=== PATIENT | female | born 1960 | race Caucasian/White ===

== ENCOUNTER → 2017-03-15 | Outpatient (CLI) | payer OTHER ==
--- NOTE | 2017-03-15 11:45 | Diagnostic Imaging Report ---
EXAMINATION: Four views of the cervical spine. INDICATION: Chronic burning between the shoulder blades. FINDINGS: There is straightening of the cervical spine lordotic curvature. The alignment of the posterior spinal line is satisfactory. There are prominent anterior osteophytes in the mid cervical spine. No posterior osteophytes are noted. The lateral masses of C1 and C2 demonstrate normal alignment. IMPRESSION: Anterior osteophytes in the mid cervical spine are seen. There is straightening of the lordotic curvature which could be due to muscle spasm. Dictated by: Dictated on workstation # [id number]
--- NOTE | 2017-03-15 12:14 | Diagnostic Imaging Report ---
EXAMINATION: Two views of the lumbar spine. INDICATION: Back pain. FINDINGS: The alignment of the posterior spinal line is satisfactory. The vertebral body heights are preserved. There is mild to moderate disc height loss at L5-S1. Multilevel anterior osteophytes are seen with no significant posterior osteophyte. Minimal degenerative sclerotic changes in the facet joints of the lower lumbar spine are seen. Also, mild degenerative changes in the SI joints are noted. Nonspecific calcification on the left side of the pelvis could be a phlebolith. IMPRESSION: Disc degenerative changes in the lower lumbar spine. Dictated by: Dictated on workstation # [id number]
== END ==
LOC: RAD 10:00
PROVIDERS: ATTEND Surgery
DX: M51.36 Other intervertebral disc degeneration, lumbar region (principal); M25.78 Osteophyte, vertebrae
CPT/HCPCS: 72040; 72100

== ENCOUNTER → 2019-04-10 | Outpatient (CLI) | payer OTHER ==
[~2019-04-10] MED LIST: RT-ALBUTEROL SULF 2.5 MG/3 ML PRE-MIX VIAL INH ONE
--- NOTE | 2019-04-10 14:09 | Diagnostic Imaging Report ---
INDICATION: COPD. TIME OF EXAM: 12:46 p.m. COMPARISON: No prior studies are available for comparison. FINDINGS: The heart size is normal. The lungs are clear. No infiltrates are seen. No effusion or pneumothorax is identified. IMPRESSION: No acute abnormality is detected. Dictated by: Dictated on workstation # [id number]
== END ==
LOC: RT 12:31
PROVIDERS: ATTEND Radiology Therapeutic Radiology
DX: Z02.71 Encounter for disability determination (principal); J44.9 Chronic obstructive pulmonary disease, unspecified
CPT/HCPCS: 71046; 94060

== ENCOUNTER → 2020-02-12 | Outpatient (CLI) | payer SELFPAY | LOC: RAD 08:52 | PROVIDERS: ATTEND Internal Medicine | DX: M54.12 Radiculopathy, cervical region (principal); Z53.8 Procedure and treatment not carried out for other reasons ==

== ENCOUNTER → 2020-12-02 | Outpatient (CLI) | payer MEDICAID, OTHER ==
[~2020-12-02] MED LIST changes: +CATHETER FLUSH 10 ML SYR IV PRN; +HOLD METFORMIN - RECEIVED CONTRAST 20 ML VIAL IV SCH; +IOHEXOL 350 MG/ML 100 ML (OMNIPAQUE 350) VIAL IV ONE; +NS 100 ML (IVPB) BAG IV ONE; -RT-ALBUTEROL SULF 2.5 MG/3 ML PRE-MIX VIAL INH ONE
--- NOTE | 2020-12-02 17:35 | Diagnostic Imaging Report ---
PROCEDURE: CT chest with contrast only. TECHNIQUE: Multiple contiguous axial images were obtained through the chest after administration of intravenous contrast. Auto Exposure Controls were utilized during the CT exam to meet ALARA standards for radiation dose reduction. INDICATION: Lung mass. COMPARISON: No relevant comparison. FINDINGS: There is an irregular soft tissue mass in the patient's left lower lobe measuring 4.1 x 3.1 cm. Its ventral aspect abuts the fissure. No pathologically enlarged or suspicious-appearing thoracic lymph nodes. No other lung mass. No effusion or pneumothorax. Right 4th, 5th, 6th and 7th rib fractures anterolaterally of uncertain acuity. They are incompletely healed but there is at least some new bone formation. These may be recent. Correlate with any recent injury. The left-sided ribs unremarkable. The spine degenerated but nonacute. No suspicious lytic or sclerotic bony lesion. An incidental intramuscular lipoma in the right lateral chest wall noted. The upper abdomen shows partially visualized fatty liver. Within the caudal aspect of the right hepatic lobe, segment 6, is a mixed hyper and hypodense mass effect measuring 6.3 cm as well as smaller nodules in the right and left lobe. There is mild nodularity of the bilateral adrenal glands on the left, measuring a thickness of 12 mm and on the right. 1 cm. IMPRESSION: Suspicious left lower lobe lung mass, worrisome for lung cancer. Metastatic disease to the bilateral adrenals and liver could not be excluded. The lung mass would be amenable to CT-guided biopsy. Metabolic PET imaging suggested as well. Likely some subacute minimally displaced right rib fractures without pulmonary parenchymal or pleural injury. Dictated by: Dictated on workstation # [id number]
== END ==
LOC: RAD 15:15
PROVIDERS: ATTEND Internal Medicine
DX: R91.1 Solitary pulmonary nodule (principal)
CPT/HCPCS: 71260

== ENCOUNTER 2020-12-16 08:49 | Outpatient (CLI) | payer MEDICAID ==
[~2020-12-16] VITALS: Ht 170 cm; Wt 75.0 kg
[2020-12-16] VITALS (10 sets, daily range): BP systolic 127–178; BP diastolic 61–108
[2020-12-16] MEDS ORDERED: NS IV 1000 ML 1,000 ML IV STA (09:23)
[2020-12-16] MEDS ORDERED: LIDOCAINE 1% INJ 20 ML 20 ML VIAL INJ ONE (09:30)
[2020-12-16] MEDS ORDERED: MIDAZOLAM 2 MG/2 ML (VERSED) VIAL IVP ONE (09:30)
[2020-12-16] MEDS ORDERED: fentaNYL INJ 100 MCG/2 ML AMP IVP ONE (09:30)
[2020-12-16 10:01] LABS: HEMOGLOBIN 15.9 g/dL (11.5-16.0); MEAN PLATELET VOLUME 9.5 fL (9.0-12.2); WHITE BLOOD COUNT 8.7 10^3/uL (4.3-11.0)
[2020-12-16] MEDS ORDERED: RT-ALBUINH INH (10:17)
[2020-12-16] MEDS ORDERED: PREG100C PO (10:17)
[2020-12-16] MEDS ORDERED: BUDE10.2 IH (10:17)
[2020-12-16] MEDS ORDERED: FLUT1BLS3 IH (10:17)
[2020-12-16] MEDS ORDERED: ACHD5005 PO (10:17)
[2020-12-16 10:21] LABS: INR 0.9 (0.8-1.4); PROTHROMBIN TIME PATIENT 12.7 SEC (12.2-14.7)
[2020-12-16] MEDS ORDERED: HYDROcodone/APAP 5 MG/325 MG (LORTAB) TAB PO PRN (11:30)
--- NOTE | 2020-12-16 13:46 | Diagnostic Imaging Report ---
INDICATION: Liver mass. Patient presents for CT-guided biopsy. TECHNIQUE: All CT scans use one or more of the following dose optimizing techniques: automated exposure control, MA and/or KvP adjustment based on patient size and exam type or iterative reconstruction. Patient was brought to the CT suite placed on table in the supine position. Axial imaging through the abdomen was performed to evaluate appropriate entry site. The right abdomen was then prepped and draped in usual sterile fashion. Procedure was performed utilizing conscious sedation with radiology nursing and constant patient monitoring. Patient was given a total of 50 mcg of fentanyl intravenously and 1 mg of Versed intravenously. Total procedure time was 12 minutes. Lidocaine was utilized for local anesthesia. 18-gauge coaxial Temno needle was advanced into the large mass in the inferior right lobe of the liver. Total of 4 core biopsies were obtained. Blood patch was injected during needle removal. Patient tolerated the procedure well and left the department in stable condition. IMPRESSION: Successful CT-guided core biopsy of the dominant mass in the inferior right lobe of the liver, utilizing, conscious sedation. Pathology results are currently pending. Dictated by: Dictated on workstation # [id number]
--- NOTE | 2020-12-16 14:38 | Pre-Op Note & Conscious Sedat ---
Pre-Operative Progress Note H&P Reviewed The H&P was reviewed, patient examined and no changes noted. Date H&P Reviewed: Dec 16, 2020 Time H&P Reviewed: 09:00 Pre-Op Diagnosis: liver mass Conscious Sedation Pre-Proced Time 09:00 ASA Score 2 For ASA 3 and 4: Consider anesthesia and medical clearance. Also, for patients with a history of failed moderate sedation consider anesthesia. Airway Lungs Heart ASA score ASA 1: a normal healthy patient ASA 2: a patient with a mild systemic disease (mid diabetes, controlled hypertension, obesity ASA 3: a patient with a severe systemic disease that limits activity (angina, COPD, prior Myocardial infarction) ASA 4: a patient with an incapacitating disease that is a constant threat to life (CHF, renal failure) ASA 5: a moribund patient not expected to survive 24 hrs. (ruptured aneurysm) ASA 6: a declared brain- patient whose organs are being harvested. For emergent operations, add the letter E after the classification Mallampati Classification Grade 2 Sedation Plan Analgesia, Amnesia, Plan communicated to team members, Discussed options with patient/fam, Discussed risks with patient/fam The patient is an appropriate candidate to undergo the planned procedure, sedation, and anesthesia. The patient immediately re-assessed prior to indication. ELOISA FISCHER MD Dec 16, 2020 14:38
== END 2020-12-16 14:05 | disposition home or self-care (01) ==
LOC: SDC 08:49
PROVIDERS: ATTEND Nurse Practitioner Family
DX: R16.0 Hepatomegaly, not elsewhere classified (principal)
CPT/HCPCS: 36415; 77012; 85027; 85610; 85730; 99156

== ENCOUNTER → 2020-12-17 | Outpatient (CLI) | payer MEDICAID ==
[~2020-12-17] MED LIST changes: +ACHD5005 PO; +BUDE10.2 IH; -CATHETER FLUSH 10 ML SYR IV PRN; +FLUT1BLS3 IH; -HOLD METFORMIN - RECEIVED CONTRAST 20 ML VIAL IV SCH; -IOHEXOL 350 MG/ML 100 ML (OMNIPAQUE 350) VIAL IV ONE; -NS 100 ML (IVPB) BAG IV ONE; +PREG100C PO; +RT-ALBUINH INH
--- NOTE | 2020-12-17 12:40 | Diagnostic Imaging Report ---
INDICATION: Lung mass. TECHNIQUE: Serum blood glucose level at the time of injection is 133 mg/dL. Patient was administered 15.6 mCi F-18 FDG intravenously and PET imaging was performed from the top of the skull through mid thighs. Noncontrast CT was also performed for attenuation correction and anatomic correlation. COMPARISON: No prior PET/CT studies available for comparison. Comparison is made with recent CT chest study from 12/02/2020. FINDINGS: There is symmetric activity throughout the brain. Physiologic activity within the soft tissues of the neck is noted. There is a hypermetabolic mass in the superior segment of the left lower lobe measuring 3.9 x 3.5 cm. SUV max is approximately 8.8. There is some mild uptake involving right fifth, sixth, and and seventh anterior ribs. In correlating with prior CT, there appear to be nondisplaced fractures at this location. Physiologic activity through the abdomen and pelvis is seen. There is a hypermetabolic mass in the inferior right lobe of the liver measuring approximately 5 cm. This demonstrates an SUV max of approximately 9. No other hypermetabolic foci are identified. IMPRESSION: 1. Hypermetabolic left lower lobe lung mass, suggestive of primary lung neoplasm. There is a hypermetabolic mass in the right lobe of the liver, most consistent with a metastatic lesion. 2. Right fifth through seventh anterior rib fractures. Dictated by: Dictated on workstation # [id number]
== END ==
LOC: RAD 08:15
PROVIDERS: ATTEND Nurse Practitioner Family
DX: S22.41XA Multiple fractures of ribs, right side, initial encounter for closed fracture (principal); R91.8 Other nonspecific abnormal finding of lung field; X58.XXXA Exposure to other specified factors, initial encounter
CPT/HCPCS: 78815; A9552

== ENCOUNTER → 2020-12-20 | Outpatient (CLI) | payer MEDICAID ==
[~2020-12-20] MED LIST changes: +RT-ALBUTEROL SULF 2.5 MG/3 ML PRE-MIX VIAL INH ONE
== END ==
LOC: RT 13:00
PROVIDERS: ATTEND Nurse Practitioner Family
DX: R06.00 Dyspnea, unspecified (principal)
CPT/HCPCS: 94060; 94726; 94729

== ENCOUNTER 2021-01-21 05:43 | Outpatient (CLI) | payer MEDICAID ==
[~2021-01-21] VITALS: Ht 170.2 cm; Wt 84.2 kg
[~2021-01-21 05:43] MED LIST changes: -RT-ALBUTEROL SULF 2.5 MG/3 ML PRE-MIX VIAL INH ONE
[2021-01-21] MEDS ORDERED: HYDR-3817 PO (13:21)
[2021-01-21] MEDS ORDERED: FOLI1TAB33 PO (13:21)
[2021-01-21] MEDS ORDERED: LORA-404 PO (13:21)
== END 2021-01-21 13:29 | disposition home or self-care (01) ==
LOC: PREOP 05:43
PROVIDERS: ATTEND Surgery
DX: Z01.818 Encounter for other preprocedural examination (principal)

== ENCOUNTER 2021-01-23 13:02 | Day surgery (SDC) | payer MEDICAID ==
[~2021-01-23] VITALS: Ht 170 cm; Wt 84.2 kg
[2021-01-23] VITALS (7 sets, daily range): BP systolic 108–142; BP diastolic 60–82
[~2021-01-23 13:02] MED LIST changes: +FOLI1TAB33 PO; +HYDR-3817 PO; +LORA-404 PO
[2021-01-23] MEDS ORDERED: HEParin (CENTRAL IV FLUSH) 500 UNIT/5 ML SYR ONE (13:11)
[2021-01-23] MEDS ORDERED: WATER (STERILE) FOR INJECTION 20 ML ONE (13:11)
[2021-01-23] MEDS ORDERED: LIDOCAINE/EPI 1%-1:200,000 (XYLOCAINE) 30 ML VIAL ONE (13:11)
--- NOTE | 2021-01-23 13:15 | Progress Note-Pre Operative ---
Pre-Operative Progress Note H&P Reviewed The H&P was reviewed, patient examined and no changes noted. Date Seen by Provider: January 23, 2021 Time Seen by Provider: 13:15 Date H&P Reviewed: January 23, 2021 Time H&P Reviewed: 13:15 Pre-Operative Diagnosis: left lung cancer JOHN HURT DO January 23, 2021 13:15
[2021-01-23] MEDS ORDERED: LACTATED RINGERS 1,000 ML IV PRN (13:30)
[2021-01-23] MEDS ORDERED: ceFAZolin INJECTION 1,000 MG in WATER (STERILE) FOR INJECTION 10 ML IV ONE ×4 (13:30)
[2021-01-23] MEDS ORDERED: PROPOFOL INJECTION 50 ML IV ONE (13:40)
[2021-01-23] MEDS ORDERED: MIDAZOLAM 2 MG/2 ML (VERSED) VIAL ONE (13:40)
--- NOTE | 2021-01-23 14:23 | Discharge Inst-Simple/Standard ---
Discharge Inst-Standard Patient Instructions/Follow Up Plan of Care/Instructions/FU: 2 weeks Philip Activity as Tolerated: No Discharge Diet: Regular Diet Other Inst to Patient Follow up Appt: Make appointment for 2 week. Instructions: No lifting greater than 10 pounds. No strenuous activity. May shower in 24 hours, no tub bath or soaking. Use incentive spirometer at home as directed. No Smoking Skin/Wound Care: You have special glue over your incision that will fall off on it's own. Ice pack on 15 min and off 30 min and repeat for first 48 hours. This will decrease swelling and discomfort. Symptoms to Report: Appetite Changes, Extremity Discoloration, Numbness/Tingling, Swelling Increased, Bleeding Excessive, Eyesight Changes, Pain Increased, Urine Color Change, Constipation(Persistent), Fever over 101 degree F, Pain/Pressure in chest, Urinating Difficulty, Cough Up/Vomit Blood, Heart Beat Irreg/Pounding, Pain/Pressure in jaw, Vaginal Bleeding Increase, Cramps in feet or legs, Lightheadedness, Pain/Pressure in shoulder, Diarrhea(Persistent), Memory Changes Suddenly, Questions/Concerns, Weight gain consecutive days, Dizziness/Fainting, Nausea/Vomiting, Shortness of Breath, Weight gain over 2 pounds If questions or concerns contact your physician Or seek help at emergency department. JOHN HURT DO January 23, 2021 14:23
--- NOTE | 2021-01-23 14:24 | Progress Note-Post Operative ---
Post-Operative Progess Note Surgeon (s)/Cleaner And Presser (s) Surgeon JOHN HURT DO Cleaner And Presser: na Pre-Operative Diagnosis left lung cancer Post-Operative Diagnosis same Procedure & Operative Findings Date of Procedure 01/23/21 Procedure Performed/Findings PROCEDURE: Right internal jugular port placement using ultrasound guidance. COMPLICATIONS: None. INDICATIONS: The patient is a 60 year old female with lung cancer needing port. Patient understands the risks and benefits of port placement and wished to proceed with the procedure. Consent was signed on the chart. PROCEDURE: The patient was taken to the operating suite, was prepped and draped in the sterile fashion. A surgical pause was performed. Ultrasound was used to locate the internal jugular vein. Once located anesthetic was infiltrated above it. Using micro-access kit, the right internal vein was accessed. Dark nonpulsatile blood was withdrawn. The wire was inserted. Fluoroscopy assured proper placement. The needle was removed. The micro-access dilator was advanced over the wire and the wire was removed. The regular wire was inserted and fluoroscopy assured proper placement. The wire was then secured. Local anesthetic was used to anesthetize from the neck for tunneling down to the right chest and for pocket creation. A 15 blade scalpel was used to make an incision over the right chest. Cautery was used to dissect down to the pectoral fascia. A pocket was created with blunt dissection. The dilator sheath was then advanced over the wire under fluoroscopy and the dilator and wire were removed. The Groshong catheter was inserted through the sheath and the sheath was then removed. The Groshong wire was removed. The catheter was then tunneled to the right chest pocket. Fluoroscopy was used to cut to length and this was then attached to the port which was then placed within the pocket. The port was then accessed without difficulty. It was then flushed with saline and then heparin. The subcutaneous tissues were then reapproximated using 3-0 Vicryl. The areas were then washed and dried. Skin Affix was placed over incision. The insertion point of the neck Skin Affix was placed over the incision. The patient tolerated the procedure well without complication and was taken to recovery room in stable condition. Chest x-ray is pending. Anesthesia Type mac c local Estimated Blood Loss Estimated blood loss (mL): min Specimens/Packing Specimens Removed JOHN Escalante DO January 23, 2021 14:24
[2021-01-23] MEDS ORDERED: MEPERIDINE (DEMEROL) INJ 50 MG/ML IVP ONE (14:45)
[2021-01-23] MEDS ORDERED: ONDANSETRON 4 MG/2 ML (SDV) Z0FRAN IVP PRN (14:45)
[2021-01-23] MEDS ORDERED: morphine INJ 10 MG/ML 1ML (SYR OR VIAL) IVP ONE (14:45)
--- NOTE | 2021-01-23 14:50 | Diagnostic Imaging Report ---
INDICATION: Port placement. TIME OF EXAM: 2:37 PM Correlation is made with prior chest from 04/10/2019. FINDINGS: Right chest wall port has tip overlying SVC. There is a left lung mass just lateral to left hilum. No effusion or pneumothorax is seen. IMPRESSION: 1. Left lung mass. 2. Right chest wall port placement. No pneumothorax is seen. Dictated by: Dictated on workstation # [id number]
--- NOTE | 2021-01-23 14:55 | Diagnostic Imaging Report ---
INDICATION: Fluoroscopy for a chest wall port placement. Fluoroscopy was provided in the OR during right chest wall port placement. 18 seconds of fluoroscopic time was utilized. A single image was obtained demonstrating a right chest wall port with tip overlying the SVC. IMPRESSION: Fluoroscopy for right chest wall port placement. Dictated by: Dictated on workstation # [id number]
[2021-01-23] MEDS ORDERED: ACETAMINOPHEN 325 MG TABLET ONE (15:07)
[2021-01-23] MEDS ORDERED: ACETAMINOPHEN 325 MG TABLET PO ONE (15:15)
== END 2021-01-23 15:35 ==
LOC: SDC 13:02
PROVIDERS: ATTEND Surgery
DX: C34.92 Malignant neoplasm of unspecified part of left bronchus or lung (principal); C78.7 Secondary malignant neoplasm of liver and intrahepatic bile duct; J44.9 Chronic obstructive pulmonary disease, unspecified; F32.9 Major depressive disorder, single episode, unspecified; F41.9 Anxiety disorder, unspecified; F17.210 Nicotine dependence, cigarettes, uncomplicated; Z79.51 Long term (current) use of inhaled steroids; Z79.899 Other long term (current) drug therapy
CPT/HCPCS: 36561; 71045; 76000; 87081; C1788

== ENCOUNTER 2021-03-13 12:47 | Outpatient (RCR) | payer MEDICAID ==
[2021-01-03 09:00] LABS: BASOPHILS # (AUTO) 0.1 10^3/uL (0.0-0.1); BASOPHILS % (AUTO) 1 % (0-10); EOSINOPHILS # (AUTO) 0.1 10^3/uL (0.0-0.3); EOSINOPHILS % (AUTO) 1 % (0-10); HEMATOCRIT 46 % (35-52); HEMOGLOBIN 16.2 g/dL (11.5-16.0); LYMPHOCYTES # (AUTO) 2.1 10^3/uL (1.0-4.0); LYMPHOCYTES % (AUTO) 32 % (12-44); MEAN CORPUSCULAR HEMOGLOBIN 35 pg (25-34); MEAN CORPUSCULAR HGB CONC 35 g/dL (32-36); MEAN CORPUSCULAR VOLUME 100 fL (80-99); MEAN PLATELET VOLUME 9.5 fL (9.0-12.2); MONOCYTES # (AUTO) 0.8 10^3/uL (0.0-1.0); MONOCYTES % (AUTO) 12 % (0-12); NEUTROPHILS # (AUTO) 3.6 10^3/uL (1.8-7.8); NEUTROPHILS % (AUTO) 54 % (42-75); PLATELET COUNT 223 10^3/uL (130-400); WHITE BLOOD COUNT 6.6 10^3/uL (4.3-11.0)
[2021-01-03 09:19] LABS: ALANINE AMINOTRANSFERASE 63 U/L (0-55); ALBUMIN 3.9 GM/DL (3.2-4.5); ALKALINE PHOSPHATASE 100 U/L (40-136); BILIRUBIN,TOTAL 0.3 MG/DL (0.1-1.0); BUN/CREATININE RATIO 9; CALCIUM 8.6 MG/DL (8.5-10.1); CARBON DIOXIDE 23 MMOL/L (21-32); CHLORIDE 103 MMOL/L (98-107); CREATININE SERUM 0.67 MG/DL (0.60-1.30); GFR ESTIMATED > 60; GLUCOSE 149 MG/DL (70-105); POTASSIUM 3.9 MMOL/L (3.6-5.0); SODIUM 137 MMOL/L (135-145)
[2021-01-28 09:14] LABS: BASOPHILS % (AUTO) 0 % (0-10); EOSINOPHILS % (AUTO) 0 % (0-10); HEMATOCRIT 45 % (35-52); HEMOGLOBIN 15.7 g/dL (11.5-16.0); LYMPHOCYTES # (AUTO) 1.2 10^3/uL (1.0-4.0); LYMPHOCYTES % (AUTO) 10 % (12-44); MEAN CORPUSCULAR HEMOGLOBIN 34 pg (25-34); MEAN CORPUSCULAR HGB CONC 35 g/dL (32-36); MEAN CORPUSCULAR VOLUME 98 fL (80-99); MEAN PLATELET VOLUME 9.7 fL (9.0-12.2); MONOCYTES # (AUTO) 0.3 10^3/uL (0.0-1.0); MONOCYTES % (AUTO) 3 % (0-12); NEUTROPHILS # (AUTO) 10.1 10^3/uL (1.8-7.8); NEUTROPHILS % (AUTO) 87 % (42-75); PLATELET COUNT 253 10^3/uL (130-400); WHITE BLOOD COUNT 11.7 10^3/uL (4.3-11.0)
[2021-01-28 09:40] LABS: BUN/CREATININE RATIO 19; CALCIUM 9.6 MG/DL (8.5-10.1); CARBON DIOXIDE 21 MMOL/L (21-32); CHLORIDE 104 MMOL/L (98-107); CREATININE SERUM 0.77 MG/DL (0.60-1.30); GFR ESTIMATED > 60; GLUCOSE 277 MG/DL (70-105); POTASSIUM 4.5 MMOL/L (3.6-5.0); SODIUM 137 MMOL/L (135-145)
[2021-02-19 14:12] LABS: BASOPHILS % (AUTO) 0 % (0-10); EOSINOPHILS % (AUTO) 0 % (0-10); HEMATOCRIT 42 % (35-52); HEMOGLOBIN 14.3 g/dL (11.5-16.0); LYMPHOCYTES # (AUTO) 1.7 10^3/uL (1.0-4.0); LYMPHOCYTES % (AUTO) 13 % (12-44); MEAN CORPUSCULAR HEMOGLOBIN 34 pg (25-34); MEAN CORPUSCULAR HGB CONC 35 g/dL (32-36); MEAN CORPUSCULAR VOLUME 98 fL (80-99); MEAN PLATELET VOLUME 9.7 fL (9.0-12.2); MONOCYTES # (AUTO) 0.6 10^3/uL (0.0-1.0); MONOCYTES % (AUTO) 5 % (0-12); NEUTROPHILS % (AUTO) 80 % (42-75); PLATELET COUNT 292 10^3/uL (130-400); WHITE BLOOD COUNT 12.5 10^3/uL (4.3-11.0)
[2021-02-19 14:29] LABS: ALANINE AMINOTRANSFERASE 33 U/L (0-55); ALKALINE PHOSPHATASE 93 U/L (40-136); BILIRUBIN,TOTAL 0.2 MG/DL (0.1-1.0); BUN/CREATININE RATIO 14; CALCIUM 9.4 MG/DL (8.5-10.1); CARBON DIOXIDE 24 MMOL/L (21-32); CHLORIDE 104 MMOL/L (98-107); GFR ESTIMATED > 60; GLUCOSE 249 MG/DL (70-105); MAGNESIUM 2.2 MG/DL (1.6-2.4); POTASSIUM 4.6 MMOL/L (3.6-5.0); SODIUM 136 MMOL/L (135-145)
[~2021-03-13] VITALS: Ht 170.2 cm; Wt 82.1 kg
[~2021-03-13 12:47] MED LIST changes: +CYANOCOBALAMIN INJ 1000 MCG/ML (CANCER CENTER) ONE; +FOSAPREPITANT (CANCER CENTER) 150 MG in NS (IVPB) CANCER CENTER ONLY 150 ML IV SCH; -IOHEXOL 240 MGI/ML 50 ML (OMNIPAQUE) VIAL IV ONE; +NS IV 1000 ML (CANCER CTR) IV SCH; +PEMBROLIZUMAB 200 MG in NS (IVPB) CANCER CENTER 50 ML IV SCH; +PEMETREXED DISODIUM 1,000 MG in NS (IVPB) CANCER CENTER 100 ML IV SCH
[2021-03-13 13:11] LABS: BASOPHILS % (AUTO) 0 % (0-10); EOSINOPHILS % (AUTO) 0 % (0-10); HEMATOCRIT 41 % (35-52); HEMOGLOBIN 14.3 g/dL (11.5-16.0); LYMPHOCYTES # (AUTO) 1.4 10^3/uL (1.0-4.0); LYMPHOCYTES % (AUTO) 13 % (12-44); MEAN CORPUSCULAR HEMOGLOBIN 34 pg (25-34); MEAN CORPUSCULAR HGB CONC 35 g/dL (32-36); MEAN CORPUSCULAR VOLUME 97 fL (80-99); MEAN PLATELET VOLUME 10.3 fL (9.0-12.2); MONOCYTES # (AUTO) 0.5 10^3/uL (0.0-1.0); MONOCYTES % (AUTO) 5 % (0-12); NEUTROPHILS # (AUTO) 8.4 10^3/uL (1.8-7.8); NEUTROPHILS % (AUTO) 81 % (42-75); PLATELET COUNT 209 10^3/uL (130-400); WHITE BLOOD COUNT 10.4 10^3/uL (4.3-11.0)
[2021-03-13 14:59] LABS: ALANINE AMINOTRANSFERASE 23 U/L (0-55); ALBUMIN 4.3 GM/DL (3.2-4.5); ALKALINE PHOSPHATASE 83 U/L (40-136); BILIRUBIN,TOTAL 0.3 MG/DL (0.1-1.0); BUN/CREATININE RATIO 17; CALCIUM 9.5 MG/DL (8.5-10.1); CARBON DIOXIDE 25 MMOL/L (21-32); CHLORIDE 106 MMOL/L (98-107); CREATININE SERUM 0.75 MG/DL (0.60-1.30); GFR ESTIMATED > 60; GLUCOSE 198 MG/DL (70-105); POTASSIUM 4.3 MMOL/L (3.6-5.0); SODIUM 139 MMOL/L (135-145); TOTAL PROTEIN 7.5 GM/DL (6.4-8.2)
[2021-03-13] MEDS ORDERED: CYANOCOBALAMIN INJ 1000 MCG/ML (CANCER CENTER) ONE (15:41)
== END 2021-04-03 | disposition home or self-care (01) ==
LOC: ONC 12:47
PROVIDERS: ATTEND Internal Medicine Hematology & Oncology
DX: Z51.11 Encounter for antineoplastic chemotherapy (principal); C34.32 Malignant neoplasm of lower lobe, left bronchus or lung; C78.7 Secondary malignant neoplasm of liver and intrahepatic bile duct; Z79.891 Long term (current) use of opiate analgesic; Z79.899 Other long term (current) drug therapy
CPT/HCPCS: 80053; 85025; G0463; 36591; 80048; 83735; 84443; 96367; 96375; 96411; 96413; 96417; 99213; 99214

== ENCOUNTER → 2021-03-13 | Outpatient (CLI) | payer MEDICAID ==
[~2021-03-13] MED LIST changes: +IOHEXOL 240 MGI/ML 50 ML (OMNIPAQUE) VIAL IV ONE
--- NOTE | 2021-03-13 14:27 | Diagnostic Imaging Report ---
Indication: Malfunctioning chest wall port. Patient is brought to the procedure room. The chest wall port was accessed in the [facility]. 20 mL of Omnipaque 240 contrast was injected into the patient's port under fluoroscopic observation. 42 seconds of fluoroscopic time was utilized. 5 images were obtained. Images demonstrate a right chest wall port tip overlying SVC right atrial junction. There is normal flow of contrast through the port. No extravasation is seen. There is no leaking or interruption of the port. The port easily flushed with saline and blood was returned with aspiration. IMPRESSION: Normal port check. No malfunction is identified. Dictated by: Dictated on workstation # [id number]
== END ==
LOC: RAD 13:37
PROVIDERS: ATTEND Internal Medicine Hematology & Oncology
DX: T82.599A Other mechanical complication of unspecified cardiac and vascular devices and implants, initial encounter (principal)
CPT/HCPCS: 36598

== ENCOUNTER → 2021-04-21 | Outpatient (CLI) | payer MEDICAID ==
[~2021-04-21] MED LIST changes: +BARIUM SUSPENSION 2.1% (VANILLA SILQ) 450 ML PO ONE; +CATHETER FLUSH 10 ML SYR IV PRN; -CYANOCOBALAMIN INJ 1000 MCG/ML (CANCER CENTER) ONE; -FOSAPREPITANT (CANCER CENTER) 150 MG in NS (IVPB) CANCER CENTER ONLY 150 ML IV SCH; +HOLD METFORMIN - RECEIVED CONTRAST 20 ML VIAL IV SCH; +IOHEXOL 350 MG/ML 100 ML (OMNIPAQUE 350) VIAL IV ONE; +NS 100 ML (IVPB) BAG IV ONE; -NS IV 1000 ML (CANCER CTR) IV SCH; -PEMBROLIZUMAB 200 MG in NS (IVPB) CANCER CENTER 50 ML IV SCH; -PEMETREXED DISODIUM 1,000 MG in NS (IVPB) CANCER CENTER 100 ML IV SCH
--- NOTE | 2021-04-21 11:59 | Diagnostic Imaging Report ---
EXAMINATION: CT chest with contrast, CT abdomen with and without contrast. TECHNIQUE: Precontrast acquisitions were acquired through the abdomen. Multiple contiguous axial images were obtained through the chest and abdomen after administration of intravenous contrast. All CT scans use one or more of the following dose optimizing techniques: automated exposure control, MA and/or KvP adjustment based on a patient size and exam type, or iterative reconstruction. HISTORY: NON-SMALL CELL LUNG CANCER COMPARISON: None available. FINDINGS: Thyroid: The thyroid is normal. Mediastinum: Heart size is normal without significant pericardial effusion. The aorta is normal in caliber. No suspicious lymphadenopathy. Lungs and airways: The lungs are clear without consolidation, pleural effusion, or pneumothorax. Decreased size in left lower lobe mass measuring 2.9 x 2.4 cm. No new suspicious pulmonary lesion. The airways are normal. Solid organs: Overall stable size and appearance of the hypoattenuating mass within the inferior right hepatic lobe. Stable subcentimeter hypoattenuating lesion within the liver which is too small for accurate characterization. There is no biliary ductal dilation. Gallbladder is normal. Pancreas is normal. Spleen is normal. There is a subcentimeter right adrenal nodule with Hounsfield units of -6 which likely represent an adrenal adenoma. There is indeterminate thickening of the left adrenal gland. The kidneys are normal without hydronephrosis. Bowel: There is no bowel obstruction. Peritoneum: There is no intraperitoneal free fluid or free air. No suspicious lymphadenopathy. Vasculature: Calcification of the aorta without aneurysm. Musculoskeletal: Degenerative changes of the spine without suspicious osseous lesion or compression fracture. IMPRESSION: 1. Decreasing size of a left lower lobe mass compared to 12/02/2020. 2. Stable size and appearance of the hypoattenuating mass within the right hepatic lobe. 3. Stable subcentimeter right adrenal nodule and left adrenal thickening. Right adrenal nodule has imaging characteristics which suggests an adenoma. Dictated by: Dictated on workstation # [id number]
--- NOTE | 2021-04-21 15:51 | Diagnostic Imaging Report ---
INDICATION: New diagnosis of non-small cell lung cancer. TECHNIQUE: 26.0 mCi of technetium 99M MDP were given intravenously. Anterior and posterior whole-body images were obtained. FINDINGS: There is slightly increased activity in the lumbar spine at L4-L5 on the right, consistent with degenerative changes seen on the CT from 04/21/2021. No abnormal activity is seen to suggest bony metastases. There is bilateral renal function seen. IMPRESSION: The whole body bone scan is felt to be negative for bony metastases. Dictated by: Dictated on workstation # [id number]
== END ==
LOC: CARD 11:00
PROVIDERS: ATTEND Nurse Practitioner Adult Health
DX: C34.90 Malignant neoplasm of unspecified part of unspecified bronchus or lung (principal); E27.8 Other specified disorders of adrenal gland; R16.0 Hepatomegaly, not elsewhere classified
CPT/HCPCS: 71260; 74170; 78306; A9503

== ENCOUNTER 2021-07-01 13:25 | Outpatient (RCR) | payer MEDICAID ==
[2021-04-07 10:22] LABS: BASOPHILS % (AUTO) 0 % (0-10); EOSINOPHILS % (AUTO) 0 % (0-10); HEMATOCRIT 40 % (35-52); HEMOGLOBIN 13.9 g/dL (11.5-16.0); LYMPHOCYTES # (AUTO) 1.4 10^3/uL (1.0-4.0); LYMPHOCYTES % (AUTO) 10 % (12-44); MEAN CORPUSCULAR HEMOGLOBIN 34 pg (25-34); MEAN CORPUSCULAR HGB CONC 35 g/dL (32-36); MEAN CORPUSCULAR VOLUME 99 fL (80-99); MEAN PLATELET VOLUME 9.9 fL (9.0-12.2); MONOCYTES # (AUTO) 0.6 10^3/uL (0.0-1.0); MONOCYTES % (AUTO) 5 % (0-12); NEUTROPHILS # (AUTO) 11.9 10^3/uL (1.8-7.8); NEUTROPHILS % (AUTO) 85 % (42-75); PLATELET COUNT 215 10^3/uL (130-400); WHITE BLOOD COUNT 14.1 10^3/uL (4.3-11.0)
[2021-04-07 10:39] LABS: ALBUMIN 4.1 GM/DL (3.2-4.5); BILIRUBIN,TOTAL 0.4 MG/DL (0.1-1.0); CALCIUM 9.6 MG/DL (8.5-10.1); CREATININE SERUM 0.73 MG/DL (0.60-1.30); MAGNESIUM 2.5 MG/DL (1.6-2.4); POTASSIUM 4.3 MMOL/L (3.6-5.0); TOTAL PROTEIN 7.3 GM/DL (6.4-8.2)
[2021-04-29 10:48] LABS: BASOPHILS % (AUTO) 0 % (0-10); EOSINOPHILS % (AUTO) 0 % (0-10); HEMATOCRIT 39 % (35-52); HEMOGLOBIN 13.8 g/dL (11.5-16.0); LYMPHOCYTES # (AUTO) 1.2 10^3/uL (1.0-4.0); LYMPHOCYTES % (AUTO) 12 % (12-44); MEAN CORPUSCULAR HEMOGLOBIN 36 pg (25-34); MEAN CORPUSCULAR HGB CONC 35 g/dL (32-36); MEAN CORPUSCULAR VOLUME 100 fL (80-99); MEAN PLATELET VOLUME 9.6 fL (9.0-12.2); MONOCYTES # (AUTO) 0.5 10^3/uL (0.0-1.0); MONOCYTES % (AUTO) 6 % (0-12); NEUTROPHILS # (AUTO) 7.7 10^3/uL (1.8-7.8); NEUTROPHILS % (AUTO) 81 % (42-75); PLATELET COUNT 259 10^3/uL (130-400); WHITE BLOOD COUNT 9.4 10^3/uL (4.3-11.0)
[2021-04-29 11:04] LABS: ALBUMIN 4.1 GM/DL (3.2-4.5); BILIRUBIN,TOTAL 0.3 MG/DL (0.1-1.0); CALCIUM 9.6 MG/DL (8.5-10.1); CREATININE SERUM 0.71 MG/DL (0.60-1.30); MAGNESIUM 1.8 MG/DL (1.6-2.4); POTASSIUM 4.1 MMOL/L (3.6-5.0); TOTAL PROTEIN 6.9 GM/DL (6.4-8.2)
[2021-05-20 13:39] LABS: BASOPHILS % (AUTO) 0 % (0-10); EOSINOPHILS % (AUTO) 0 % (0-10); HEMATOCRIT 41 % (35-52); HEMOGLOBIN 14.6 g/dL (11.5-16.0); LYMPHOCYTES # (AUTO) 1.3 10^3/uL (1.0-4.0); LYMPHOCYTES % (AUTO) 16 % (12-44); MEAN CORPUSCULAR HEMOGLOBIN 37 pg (25-34); MEAN CORPUSCULAR HGB CONC 36 g/dL (32-36); MEAN CORPUSCULAR VOLUME 102 fL (80-99); MONOCYTES # (AUTO) 0.4 10^3/uL (0.0-1.0); MONOCYTES % (AUTO) 5 % (0-12); NEUTROPHILS # (AUTO) 6.4 10^3/uL (1.8-7.8); NEUTROPHILS % (AUTO) 79 % (42-75); PLATELET COUNT 224 10^3/uL (130-400); WHITE BLOOD COUNT 8.1 10^3/uL (4.3-11.0)
[2021-05-20 14:02] LABS: ALBUMIN 4.2 GM/DL (3.2-4.5); BILIRUBIN,TOTAL 0.3 MG/DL (0.1-1.0); CALCIUM 9.6 MG/DL (8.5-10.1); CREATININE SERUM 0.73 MG/DL (0.60-1.30); MAGNESIUM 2.7 MG/DL (1.6-2.4); TOTAL PROTEIN 7.3 GM/DL (6.4-8.2)
[2021-06-10 10:54] LABS: BASOPHILS % (AUTO) 0 % (0-10); EOSINOPHILS % (AUTO) 0 % (0-10); HEMATOCRIT 38 % (35-52); HEMOGLOBIN 13.5 g/dL (11.5-16.0); LYMPHOCYTES # (AUTO) 1.1 10^3/uL (1.0-4.0); LYMPHOCYTES % (AUTO) 12 % (12-44); MEAN CORPUSCULAR HEMOGLOBIN 37 pg (25-34); MEAN CORPUSCULAR HGB CONC 35 g/dL (32-36); MEAN CORPUSCULAR VOLUME 104 fL (80-99); MEAN PLATELET VOLUME 9.9 fL (9.0-12.2); MONOCYTES # (AUTO) 0.6 10^3/uL (0.0-1.0); MONOCYTES % (AUTO) 7 % (0-12); NEUTROPHILS # (AUTO) 7.6 10^3/uL (1.8-7.8); NEUTROPHILS % (AUTO) 81 % (42-75); PLATELET COUNT 225 10^3/uL (130-400); WHITE BLOOD COUNT 9.4 10^3/uL (4.3-11.0)
[2021-06-10 11:15] LABS: BILIRUBIN,TOTAL 0.4 MG/DL (0.1-1.0); CALCIUM 9.3 MG/DL (8.5-10.1); CREATININE SERUM 0.68 MG/DL (0.60-1.30); POTASSIUM 4.2 MMOL/L (3.6-5.0)
[~2021-07-01 13:25] MED LIST changes: -BARIUM SUSPENSION 2.1% (VANILLA SILQ) 450 ML PO ONE; -CATHETER FLUSH 10 ML SYR IV PRN; +CYANOCOBALAMIN INJ 1000 MCG/ML (CANCER CENTER) ONE; +FOSAPREPITANT (CANCER CENTER) 150 MG in NS (IVPB) CANCER CENTER ONLY 150 ML IV SCH; -HOLD METFORMIN - RECEIVED CONTRAST 20 ML VIAL IV SCH; -IOHEXOL 350 MG/ML 100 ML (OMNIPAQUE 350) VIAL IV ONE; -NS 100 ML (IVPB) BAG IV ONE; +NS IV 1000 ML (CANCER CTR) IV SCH; +PEMBROLIZUMAB 200 MG in NS (IVPB) CANCER CENTER 50 ML IV SCH; +PEMETREXED DISODIUM 1,000 MG in NS (IVPB) CANCER CENTER 100 ML IV SCH; +PEMETREXED DISODIUM 500 MG, PEMETREXED DISODIUM 400 MG in NS (IVPB) CANCER CENTER 100 ML IV SCH
[2021-07-01 13:57] LABS: BASOPHILS % (AUTO) 0 % (0-10); EOSINOPHILS % (AUTO) 0 % (0-10); HEMATOCRIT 40 % (35-52); LYMPHOCYTES # (AUTO) 1.3 10^3/uL (1.0-4.0); LYMPHOCYTES % (AUTO) 9 % (12-44); MEAN CORPUSCULAR HEMOGLOBIN 37 pg (25-34); MEAN CORPUSCULAR HGB CONC 35 g/dL (32-36); MEAN CORPUSCULAR VOLUME 107 fL (80-99); MEAN PLATELET VOLUME 9.6 fL (9.0-12.2); MONOCYTES # (AUTO) 0.8 10^3/uL (0.0-1.0); MONOCYTES % (AUTO) 6 % (0-12); NEUTROPHILS # (AUTO) 11.8 10^3/uL (1.8-7.8); NEUTROPHILS % (AUTO) 84 % (42-75); PLATELET COUNT 282 10^3/uL (130-400)
[2021-07-01] MEDS ORDERED: ALTEPLASE 2 MG (CATHFLO) CANCER CENTER IV ONE (14:00)
[2021-07-01 14:14] LABS: ALBUMIN 4.2 GM/DL (3.2-4.5); BILIRUBIN,TOTAL 0.3 MG/DL (0.1-1.0); CALCIUM 9.3 MG/DL (8.5-10.1); CREATININE SERUM 0.68 MG/DL (0.60-1.30); POTASSIUM 4.4 MMOL/L (3.6-5.0); TOTAL PROTEIN 7.3 GM/DL (6.4-8.2)
== END 2021-07-06 | disposition home or self-care (01) ==
LOC: ONC 13:25
PROVIDERS: ATTEND Internal Medicine Hematology & Oncology
DX: Z51.11 Encounter for antineoplastic chemotherapy (principal); C34.32 Malignant neoplasm of lower lobe, left bronchus or lung; C78.7 Secondary malignant neoplasm of liver and intrahepatic bile duct; Z79.899 Other long term (current) drug therapy
CPT/HCPCS: 80053; 83735; 84443; 85025; 96367; 96375; 96411; 96413; 96417; G0463; 36591; 36593

== ENCOUNTER → 2021-07-17 | Outpatient (CLI) | payer MEDICAID ==
[~2021-07-17] MED LIST changes: +BARIUM SUSPENSION 2.1% (VANILLA SILQ) 450 ML PO ONE; -CYANOCOBALAMIN INJ 1000 MCG/ML (CANCER CENTER) ONE; -FOSAPREPITANT (CANCER CENTER) 150 MG in NS (IVPB) CANCER CENTER ONLY 150 ML IV SCH; +HOLD METFORMIN - RECEIVED CONTRAST 20 ML VIAL IV SCH; +IOHEXOL 350 MG/ML 100 ML (OMNIPAQUE 350) VIAL IV ONE; +NS 100 ML (IVPB) BAG IV ONE; -NS IV 1000 ML (CANCER CTR) IV SCH; -PEMBROLIZUMAB 200 MG in NS (IVPB) CANCER CENTER 50 ML IV SCH; -PEMETREXED DISODIUM 1,000 MG in NS (IVPB) CANCER CENTER 100 ML IV SCH; -PEMETREXED DISODIUM 500 MG, PEMETREXED DISODIUM 400 MG in NS (IVPB) CANCER CENTER 100 ML IV SCH
[2021-07-17] MEDS: CATHETER FLUSH 10 ML SYR IV PRN ×2 (12:09→12:28)
--- NOTE | 2021-07-17 12:59 | Diagnostic Imaging Report ---
PROCEDURE: CT chest with contrast, CT abdomen with and without contrast. TECHNIQUE: Precontrast acquisitions were acquired through the abdomen. Multiple contiguous axial images were obtained through the chest and abdomen after administration of intravenous contrast. Auto Exposure Controls were utilized during the CT exam to meet ALARA standards for radiation dose reduction. INDICATION: Malignant neoplasm of the lower lobe. Correlation is made with prior CT from 04/21/2021. CT CHEST: A right chest wall port has tip within the SVC. No axillary lymphadenopathy is identified. No mediastinal or hilar lymphadenopathy is detected. There is no pericardial or pleural fluid detected. Partially cavitary mass left lower lobe measures 2.6 x 1.9 cm compared with 2.9 x 2.4 cm on prior. No new pulmonary mass is detected. There is some scarring or atelectasis in the lingula. IMPRESSION: Decrease in size of cavitary left lower lobe mass when compared to examination from 04/21/2021. CT ABDOMEN: The hypoattenuating lesion in the inferior right lobe of liver does appear to be increased in size, now measuring 7.0 x 4.3 cm compared with 6.1 x 4.4 cm. Smaller low-attenuation lesion more cephalad and anterior to the dominant lesion appears stable. Liver does show generalized low density consistent with hepatic steatosis. Gallbladder is unremarkable. There is no biliary ductal dilatation. The pancreas and spleen are unremarkable. Nodule involving the right adrenal gland and mild nodularity left adrenal gland is stable. The kidneys are unremarkable. Aorta and iliac vessels are calcified but nonaneurysmal. No central retroperitoneal or mesenteric lymphadenopathy is seen. There does appear to be some laxity of the anterior abdominal wall midline with some small bowel loops protruding through the area of laxity but no evidence of bowel obstruction is seen. There is no free fluid. No fluid collection or free air is seen. IMPRESSION: 1. Increase in size of hypoattenuating solid lesion right lobe of liver when compared with prior study from 04/21/2021. No new liver lesions are seen. No definite abdominal lymphadenopathy is detected. Dictated by: Dictated on workstation # [id number]
--- NOTE | 2021-07-17 16:18 | Diagnostic Imaging Report ---
INDICATION: History of non-small cell lung cancer. TECHNIQUE: The patient was administered 24.9 mCi technetium 99m MDP intravenously. After an approximately three-hour delay, anterior and posterior whole-body planar images were obtained. CORRELATION STUDY: 04/21/2021. FINDINGS: Mild increased uptake over the mid thoracic spine as well as lower lumbar spine greatest on the right humerus degenerative type activity. Bony calvarium unremarkable. Shoulder girdles as well as sternoclavicular joints, sternum and ribs appear symmetric. Bilateral hemipelves unremarkable. Long bones of the lower extremities are also unremarkable. IMPRESSION: Generally stable, negative appearing whole-body bone scan. Dictated by: Dictated on workstation # [id number]
== END ==
LOC: CARD 12:00
PROVIDERS: ATTEND Nurse Practitioner Adult Health
DX: C34.32 Malignant neoplasm of lower lobe, left bronchus or lung (principal); C78.7 Secondary malignant neoplasm of liver and intrahepatic bile duct
CPT/HCPCS: 71260; 74170; 78306; A9503

== ENCOUNTER 2021-08-26 12:50 | Outpatient (RCR) | payer MEDICAID ==
[2021-07-29 11:42] LABS: BASOPHILS % (AUTO) 0 % (0-10); EOSINOPHILS % (AUTO) 0 % (0-10); HEMATOCRIT 41 % (35-52); HEMOGLOBIN 14.5 g/dL (11.5-16.0); LYMPHOCYTES # (AUTO) 1.3 10^3/uL (1.0-4.0); LYMPHOCYTES % (AUTO) 9 % (12-44); MEAN CORPUSCULAR HEMOGLOBIN 37 pg (25-34); MEAN CORPUSCULAR HGB CONC 36 g/dL (32-36); MEAN CORPUSCULAR VOLUME 105 fL (80-99); MEAN PLATELET VOLUME 10.1 fL (9.0-12.2); MONOCYTES # (AUTO) 0.6 10^3/uL (0.0-1.0); MONOCYTES % (AUTO) 5 % (0-12); NEUTROPHILS # (AUTO) 12.2 10^3/uL (1.8-7.8); NEUTROPHILS % (AUTO) 86 % (42-75); PLATELET COUNT 205 10^3/uL (130-400); WHITE BLOOD COUNT 14.2 10^3/uL (4.3-11.0)
[2021-07-29 12:19] LABS: ALBUMIN 4.1 GM/DL (3.2-4.5); BILIRUBIN,TOTAL 0.4 MG/DL (0.1-1.0); CALCIUM 9.5 MG/DL (8.5-10.1); CREATININE SERUM 0.69 MG/DL (0.60-1.30); TOTAL PROTEIN 7.2 GM/DL (6.4-8.2)
[~2021-08-26 12:50] MED LIST changes: -BARIUM SUSPENSION 2.1% (VANILLA SILQ) 450 ML PO ONE; +CYANOCOBALAMIN INJ 1000 MCG/ML (CANCER CENTER) ONE; +FOSAPREPITANT (CANCER CENTER) 150 MG in NS (IVPB) CANCER CENTER ONLY 150 ML IV SCH; -HOLD METFORMIN - RECEIVED CONTRAST 20 ML VIAL IV SCH; -IOHEXOL 350 MG/ML 100 ML (OMNIPAQUE 350) VIAL IV ONE; -NS 100 ML (IVPB) BAG IV ONE; +NS IV 1000 ML (CANCER CTR) IV SCH; +PEMBROLIZUMAB 200 MG in NS (IVPB) CANCER CENTER 50 ML IV SCH; +PEMETREXED DISODIUM 500 MG, PEMETREXED DISODIUM 400 MG in NS (IVPB) CANCER CENTER 100 ML IV SCH
[2021-08-26 13:24] LABS: BASOPHILS % (AUTO) 0 % (0-10); EOSINOPHILS % (AUTO) 0 % (0-10); HEMATOCRIT 43 % (35-52); HEMOGLOBIN 14.8 g/dL (11.5-16.0); LYMPHOCYTES # (AUTO) 1.1 10^3/uL (1.0-4.0); LYMPHOCYTES % (AUTO) 6 % (12-44); MEAN CORPUSCULAR HEMOGLOBIN 37 pg (25-34); MEAN CORPUSCULAR HGB CONC 35 g/dL (32-36); MEAN CORPUSCULAR VOLUME 106 fL (80-99); MEAN PLATELET VOLUME 10.1 fL (9.0-12.2); MONOCYTES # (AUTO) 0.5 10^3/uL (0.0-1.0); MONOCYTES % (AUTO) 3 % (0-12); NEUTROPHILS # (AUTO) 17.5 10^3/uL (1.8-7.8); NEUTROPHILS % (AUTO) 91 % (42-75); PLATELET COUNT 197 10^3/uL (130-400); WHITE BLOOD COUNT 19.2 10^3/uL (4.3-11.0)
[2021-08-26 13:44] LABS: ALBUMIN 4.3 GM/DL (3.2-4.5); BILIRUBIN,TOTAL 0.4 MG/DL (0.1-1.0); CALCIUM 9.7 MG/DL (8.5-10.1); CREATININE SERUM 0.77 MG/DL (0.60-1.30); POTASSIUM 4.5 MMOL/L (3.6-5.0); TOTAL PROTEIN 7.5 GM/DL (6.4-8.2)
== END 2021-08-29 | disposition home or self-care (01) ==
LOC: ONC 12:50
PROVIDERS: ATTEND Internal Medicine Hematology & Oncology
DX: Z51.11 Encounter for antineoplastic chemotherapy (principal); Z45.2 Encounter for adjustment and management of vascular access device; C34.32 Malignant neoplasm of lower lobe, left bronchus or lung; C78.7 Secondary malignant neoplasm of liver and intrahepatic bile duct; Z79.899 Other long term (current) drug therapy
CPT/HCPCS: 80053; 83735; 84443; 85025; 96372; 96375; 96411; 96413; G0463; 36591

== ENCOUNTER → 2022-02-06 | Outpatient (CLI) | payer MEDICARE, MEDICAID ==
[~2022-02-06] MED LIST changes: -CYANOCOBALAMIN INJ 1000 MCG/ML (CANCER CENTER) ONE; -FOSAPREPITANT (CANCER CENTER) 150 MG in NS (IVPB) CANCER CENTER ONLY 150 ML IV SCH; -NS IV 1000 ML (CANCER CTR) IV SCH; -PEMBROLIZUMAB 200 MG in NS (IVPB) CANCER CENTER 50 ML IV SCH; -PEMETREXED DISODIUM 500 MG, PEMETREXED DISODIUM 400 MG in NS (IVPB) CANCER CENTER 100 ML IV SCH
--- NOTE | 2022-02-06 16:05 | Diagnostic Imaging Report ---
INDICATION: [id number] lung carcinoma. TECHNIQUE: Patient was administered 26.4 mCi technetium 99m MDP intravenously and whole body imaging was performed after a three-hour delay. COMPARISON: Correlation is made with prior bone scan from 07/17/2021. FINDINGS: There is normal uptake of activity by the axial and appendicular skeleton. There is uptake by both kidneys with excretion to the urinary bladder. No abnormal foci are identified to suggest osseous metastatic disease. IMPRESSION: Stable whole body bone scan. There is no scintigraphic evidence of osseous metastatic disease. Dictated by: Dictated on workstation # [id number]
== END ==
LOC: CARD 11:00
PROVIDERS: ATTEND Nurse Practitioner
DX: C34.32 Malignant neoplasm of lower lobe, left bronchus or lung (principal); C78.7 Secondary malignant neoplasm of liver and intrahepatic bile duct
CPT/HCPCS: 78306; A9503

== ENCOUNTER → 2022-05-05 | Outpatient (CLI) | payer MEDICARE, MEDICAID ==
--- NOTE | 2022-05-05 18:57 | Diagnostic Imaging Report ---
INDICATION: Lung and liver cancer. The patient was administered 24.8 mCi technetium 99m MDP intravenously and whole-body imaging was performed after a 3 hour delay. CORRELATION is made with prior whole body bone scan from 02/06/2022. There is normal uptake of activity by the axial and appendicular skeleton. There is uptake by the kidneys. There is normal excretion to the urinary bladder. No suspicious foci are identified to suggest osseous metastatic disease. IMPRESSION: No scintigraphic evidence of osseous metastatic disease. Dictated by: Dictated on workstation # [id number]
== END ==
LOC: CARD 11:19
PROVIDERS: ATTEND Nurse Practitioner
DX: Z51.11 Encounter for antineoplastic chemotherapy (principal); C34.32 Malignant neoplasm of lower lobe, left bronchus or lung; C78.7 Secondary malignant neoplasm of liver and intrahepatic bile duct
CPT/HCPCS: 78306; A9503

== ENCOUNTER → 2022-09-11 | Outpatient (CLI) | payer MEDICARE, MEDICAID ==
--- NOTE | 2022-09-11 16:12 | Diagnostic Imaging Report ---
INDICATION: Lung and liver carcinoma. The patient was administered 27.0 mCi technetium 99m MDP intravenously and whole-body imaging was performed after a three-hour delay. CORRELATION is made with prior whole body bone scan from 05/05/2022. There is a small focus of activity near the articulation of a left-sided rib with the vertebral body, approximately the left 8th rib at the articulation with the vertebral body. This may be degenerative. There is normal uptake of activity within the kidneys with excretion to the urinary bladder. No suspicious foci are seen to suggest osseous metastatic disease. IMPRESSION: Stable whole-body bone scan. There are no findings to suggest osseous metastatic disease. Dictated by: Dictated on workstation # [id number]
== END ==
LOC: CARD 11:09
PROVIDERS: ATTEND Nurse Practitioner
DX: Z51.11 Encounter for antineoplastic chemotherapy (principal); C34.32 Malignant neoplasm of lower lobe, left bronchus or lung; C22.7 Other specified carcinomas of liver
CPT/HCPCS: 78306; A9503

== ENCOUNTER 2023-07-02 07:11 | Outpatient (CLI) | payer MEDICARE, MEDICAID ==
[~2023-07-02] VITALS: Ht 170 cm; Wt 63.0 kg
[2023-07-02] VITALS (10 sets, daily range): BP systolic 147–160; BP diastolic 73–83
[2023-07-02] MEDS ORDERED: NS IV 1000 ML 1,000 ML IV STA (08:06)
[2023-07-02] MEDS ORDERED: LIDOCAINE 1% INJ 10 ML VIAL INJ ONE (08:15)
[2023-07-02] MEDS ORDERED: fentaNYL INJECTION 100 MCG/2 ML VIAL IVP ONE (08:15)
[2023-07-02] MEDS ORDERED: MIDAZOLAM INJ 2 MG/2 ML VIAL IVP ONE (08:15)
[2023-07-02 08:37] LABS: HEMATOCRIT 36 % (35-52); HEMOGLOBIN 12.4 g/dL (11.5-16.0); MEAN CORPUSCULAR HEMOGLOBIN 36 pg (25-34); MEAN CORPUSCULAR HGB CONC 34 g/dL (32-36); MEAN CORPUSCULAR VOLUME 106 fL (80-99); MEAN PLATELET VOLUME 10.9 fL (9.0-12.2); PLATELET COUNT 160 10^3/uL (130-400)
--- NOTE | 2023-07-02 09:54 | Pre-Op Note & Conscious Sedat ---
Pre-Operative Progress Note Date of Available H&P: Jul 02, 2023 Date H&P Reviewed: Jul 02, 2023 Time H&P Reviewed: 09:00 Pre-Op Diagnosis: liver mass Moderate Sedation PreProcedure Time 09:00 ASA Score 2 Airway Lungs Heart ASA score ASA 1: a normal healthy patient ASA 2: a patient with a mild systemic disease (mid diabetes, controlled hypertension, obesity ASA 3: a patient with a severe systemic disease that limits activity (angina, COPD, prior Myocardial infarction) ASA 4: a patient with an incapacitating disease that is a constant threat to life (CHF, renal failure) ASA 5: a moribund patient not expected to survive 24 hrs. (ruptured aneurysm) ASA 6: a declared brain- patient whose organs are being harvested. For emergent operations, add the letter E after the classification Mallampati Classification Grade 2 Sedation Plan Analgesia, Amnesia, Plan communicated to team members, Discussed options with patient/fam, Discussed risks with patient/fam The patient is an appropriate candidate to undergo the planned procedure, sedation, and anesthesia. The patient immediately re-assessed prior to indication. ELOISA FISCHER MD Jul 02, 2023 09:54
[2023-07-02] MEDS ORDERED: HYDROcodone/ACETAMINOPHEN 5 MG/325 MG TABLET PO PRN (10:15)
--- NOTE | 2023-07-02 11:43 | Diagnostic Imaging Report ---
INDICATION: Liver mass. Patient presents for CT-guided biopsy. Patient was brought to the CT suite and placed on table in the supine position. Axial imaging through the abdomen was performed to evaluate appropriate entry site. Procedure was performed utilizing conscious sedation with radiology nursing and constipation monitoring. Patient was given a total of 50 mcg of fentanyl intravenously and 1 mg of Versed intravenously. Total procedure time was approximately 4 minutes. Right abdomen was prepped and draped in the usual sterile fashion. A small amount of 1% lidocaine was utilized for local anesthesia. An 18-gauge coaxial Temno needle was advanced into the right lobe of the liver and placed within the low-attenuation mass in the right lobe. Four core biopsies were obtained. The needle was removed during a blood patch injection. Hemostasis was obtained using manual compression. Follow-up imaging shows no complicating features. IMPRESSION: Successful CT-guided biopsy of right lobe liver mass utilizing conscious sedation. Pathology results are currently pending. Dictated by: Dictated on workstation # [id number]
== END 2023-07-02 12:20 ==
LOC: SDC 07:11
PROVIDERS: ATTEND Nurse Practitioner Adult Health
DX: C78.7 Secondary malignant neoplasm of liver and intrahepatic bile duct (principal); C34.90 Malignant neoplasm of unspecified part of unspecified bronchus or lung; F17.210 Nicotine dependence, cigarettes, uncomplicated
CPT/HCPCS: 36415; 77012; 85027; 85610; 85730; 99156